=== PATIENT | male | born 1960 | race Caucasian/White ===

== ENCOUNTER → 2020-05-07 | Outpatient (CLI) | payer MEDICARE ==
[~2020-05-07] MED LIST: ALEVE220 MG PO; ASPI81CH PO; CALACE667G; Calcium Acetat667 MG PO; HYDACE5 PO; HYDR1TAB94 PO; MELO7.5; METO25ER; METO25ER PO; Nephro-Vite RX1 EA PO; PERM5TC TOP; Prilosec Otc20 MG PO; Prinivil10 MG PO; [UNRECOGNIZED DRUG - REMARK]
== END | disposition home or self-care (01) ==
LOC: LAB SHORT 12:45 → LAB EV 12:45
DX: U07.1 COVID-19 (principal)
CPT/HCPCS: U0003

== ENCOUNTER 2020-05-15 10:14 | Emergency (ER) | payer MEDICARE ==
[~2020-05-15] VITALS: Ht 149.9 cm; Wt 54.4 kg
[2020-05-15 11:00] LABS: Calcium, Ionized (POC) 1.12 mmol/L (1.10-1.46); Chloride (POC) 108 mmol/L (98-108); Creatinine (POC) 2.1 mg/dL (0.8-1.3); Glucose (ISTAT POC) 91 mg/dL (70-99); Hemoglobin (POC) 14.6 g/dL (13.5-17.5); Potassium (POC) 4.7 mmol/L (3.5-5.5); Sodium (POC) 139 mmol/L (135-148); Total CO2 (POC) 22 mmol/L (21-32)
== END 2020-05-15 11:45 | disposition home or self-care (01) ==
LOC: ER 10:14
PROVIDERS: Emergency Medicine
DX: U07.1 COVID-19 (principal); R53.1 Weakness; M54.9 Dorsalgia, unspecified; R05 Cough; R06.02 Shortness of breath
CPT/HCPCS: 80047; 85014; 99283

== ENCOUNTER → 2020-10-05 | Outpatient (CLI) | payer OTHER ==
[~2020-10-05] MED LIST changes: +Aspirin EC81 MG PO; +CYCL10 PO; +LOSA25 PO; -Nephro-Vite RX1 EA PO; +RENAL VITAMIN0.8 MG PO
[2020-10-05 13:51] LABS: Creatinine, Urine Random 70.2 mg/dL (27.00-270.00)
[2020-10-05 13:54] LABS: Microalb/Creat Ratio UR, Rand 59.829 mg/g (0.000-30.000)
== END | disposition home or self-care (01) ==
LOC: LAB 10:38 → LAB SHORT 10:38 → LAB FUT 07-06 11:20
PROVIDERS: Physician Assistant Medical
DX: I10 Essential (primary) hypertension (principal)
CPT/HCPCS: 82043; 82570

== ENCOUNTER 2020-10-18 06:03 | Day surgery (SDC) | payer OTHER ==
[~2020-10-18] VITALS: Ht 149.9 cm; Wt 66.3 kg
[~2020-10-18 06:03] MED LIST changes: -Aspirin EC81 MG PO; -CYCL10 PO; +Nephro-Vite RX1 EA PO; -RENAL VITAMIN0.8 MG PO
--- NOTE | 2020-10-18 06:46 | NUR ---
PT AMBULATES TO [facility] c [facility] GAIT. History, Chart, Medications and Allergies reviewed before start of procedure. Lungs clear T/O to Auscultation. Patient confirms NPO status and agrees with scheduled surgery. Patient reports completing Chlorhexadine shower X2 prior to admission to hospital. REPORTS DAUGHTER WILL PICK HIM UP, LIVES IN [place].
--- NOTE | 2020-10-18 09:53 | NUR ---
RECIEVED PATIENT AND REPORT AT 0943 VSS PATIENT AWAKE.
--- NOTE | 2020-10-18 11:20 | NUR ---
Discharge instructions reviewed with patient. Patient verbalizes understanding. Copy given to patient to take home. Patient States Post-Procedure ride home has been arranged. Discharged via wheelchair to private car for ride home.
== END 2020-10-18 11:22 | disposition home or self-care (01) ==
LOC: ORSCMMR 06:03 → ORD 07:30 → ORSCMMR 07:30
PROVIDERS: Surgery
PROC: 0YU60JZ Supplement Left Inguinal Region with Synthetic Substitute, Open Approach (ICD-10-PCS; principal; 2020-10-18 07:30)
DX: K40.90 Unilateral inguinal hernia, without obstruction or gangrene, not specified as recurrent (principal); I10 Essential (primary) hypertension; Z79.899 Other long term (current) drug therapy; Z79.82 Long term (current) use of aspirin
CPT/HCPCS: C1781; J0690; J1100; J1885; J2250; J2405; J2704; J3010; J7120

== ENCOUNTER 2020-11-11 14:12 | Emergency (ER) | payer OTHER ==
[~2020-11-11] VITALS: Ht 149.9 cm; Wt 63.5 kg
[~2020-11-11 14:12] MED LIST changes: +Aspirin EC81 MG PO; -Nephro-Vite RX1 EA PO; +RENAL VITAMIN0.8 MG PO
[2020-11-11 15:03] LABS: BASOPHILS ABSOLUTE AUTO 0.08 K/mm3 (0.00-0.23); BASOPHILS PERCENT AUTO 1 % (0-2); EOSINOPHILS ABSOLUTE AUTO 0.22 K/mm3 (0.00-0.68); EOSINOPHILS PERCENT AUTO 2 % (0-6); Hematocrit 44.3 % (37.0-53.0); Hemoglobin 14.7 g/dL (13.5-17.5); IMMATURE GRAN ABSOLUTE AUTO 0.17 K/mm3 (0.00-0.10); IMMATURE GRAN PERCENT AUTO 2 % (0-1); LYMPHOCYTES ABSOLUTE AUTO 2.12 K/mm3 (0.84-5.20); LYMPHOCYTES PERCENT AUTO 22 % (21-46); MONOCYTES ABSOLUTE AUTO 0.64 K/mm3 (0.16-1.47); MONOCYTES PERCENT AUTO 7 % (4-13); Mean Corpuscular HGB 28.4 pg (26.0-34.0); Mean Corpuscular HGB Conc 33.2 g/dL (31.5-36.5); Mean Corpuscular Volume 86 fL (80-100); NEUTROPHILS ABSOLUTE AUTO 6.28 K/mm3 (1.96-9.15); NEUTROPHILS PERCENT AUTO 66 % (41-73); Platelet Count 234 K/mm3 (150-400); RDW Coefficient Variation 14.5 % (11.7-14.2); RDW Standard Deviation 45.2 fL (35.1-46.3); Red Blood Cell Count 5.18 M/mm3 (4.30-5.90); White Blood Cell Count 9.51 K/mm3 (4.00-11.30)
[2020-11-11 15:22] LABS: Albumin, Blood 4.2 g/dL (3.4-5.0); Bilirubin, Total 0.5 mg/dL (0.1-1.0); Bun/Creatinine Ratio 24.3 (12.0-20.0); Creatinine, Blood 1.81 mg/dL (0.60-1.20); Globulin, Blood 4.2 g/dL (2.2-4.0); Potassium, Blood 4.9 mmol/L (3.5-5.5); Total Protein, Blood 8.4 g/dL (6.4-8.2)
[2020-11-11 16:40] LABS: Source, Urine Clean Catch
[2020-11-11 16:55] LABS: Bilirubin, Urine Neg (Neg); Blood, Urine Neg (Neg); Glucose Qualitative, Urine Neg (Neg); Ketones, Urine Neg (Neg); Leukocyte Esterase, Urine Neg (Neg); Nitrite, Urine Neg (Neg); Protein, Urine Neg (Neg); Urobilinogen, Urine NORM (Normal)
[2020-11-11 17:26] LABS: Appearance, Urine Clear (Clear); Color, Urine Yellow (P-Yellow)
[2020-11-11] MEDS ORDERED: HYDR1TAB94 PO (18:42)
[2020-11-11] MEDS ORDERED: CYCL10 PO (18:42)
== END 2020-11-11 19:34 | disposition home or self-care (01) ==
LOC: ER 14:12
PROVIDERS: Physician Assistant
DX: R10.9 Unspecified abdominal pain (principal); R11.0 Nausea; R50.9 Fever, unspecified; Z79.82 Long term (current) use of aspirin; Z79.899 Other long term (current) drug therapy
CPT/HCPCS: 36415; 74176; 80053; 81003; 85025; 96374; 96375; 99284-25; J2405; J3010; J7030

== ENCOUNTER 2022-09-24 07:02 | Emergency (ER) | payer OTHER ==
[~2022-09-24] VITALS: Ht 154.9 cm; Wt 63.5 kg
[~2022-09-24 07:02] MED LIST changes: +CYCL10 PO
== END 2022-09-24 07:32 | disposition home or self-care (01) ==
LOC: ER 07:02
DX: J06.9 Acute upper respiratory infection, unspecified (principal); Z79.82 Long term (current) use of aspirin; Z79.899 Other long term (current) drug therapy
CPT/HCPCS: 99283

== ENCOUNTER → 2024-09-09 | Outpatient (CLI) | payer OTHER | LOC: LAB SHORT 08:37 → LAB 08:37 | DX: R31.9 Hematuria, unspecified (principal) | CPT/HCPCS: 87086 ==

== ENCOUNTER → 2024-09-18 | Outpatient (CLI) | payer OTHER | LOC: LAB 07:46 → LAB SHORT 07:46 | DX: D49.0 Neoplasm of unspecified behavior of digestive system (principal) | CPT/HCPCS: 88173 ==